=== PATIENT | male | born 1960 | race Caucasian/White ===

== ENCOUNTER 2017-01-20 15:57 | Emergency (ER) | payer BC ==
[2017-01-20] MEDS ORDERED: cefTRIAXone Inj 2 GM in Sodium Chloride 0.9% 100 ML IV ONE (16:15)
[2017-01-20] MEDS ORDERED: NORMAL SALINE 10 ML SYRINGE FLUSH IVP PRN (16:15)
[2017-01-20] MEDS ORDERED: methylPREDNISolone 125 MG/2 ML VIAL IVP ONE (16:15)
[2017-01-20 16:36] LABS: BASOPHILS # (AUTO) 0.06 10*3/UL; BASOPHILS % (AUTO) 0.6 % (0-1); EOSINOPHILS # (AUTO) 0.42 10*3/UL; EOSINOPHILS % (AUTO) 4.2 % (0-8); HEMOGLOBIN 15.6 g/dL (14.0-18.0); LYMPHOCYTES # (AUTO) 3.32 10*3/uL; MEAN CORPUSCULAR HEMOGLOBIN 29.9 PG (27-31); MEAN CORPUSCULAR HGB CONC 34.7 g/dL (33-37); MEAN CORPUSCULAR VOLUME 86.4 FL (80-90); MONOCYTES # (AUTO) 0.84 10*3/UL (0.3-0.8); MONOCYTES % (AUTO) 8.4 % (5-15); NEUTROPHILS # (AUTO) 5.37 10*3/UL; NEUTROPHILS % (AUTO) 53.5 % (50-80); RED BLOOD COUNT 5.21 10^6/uL (4.70-6.10)
[2017-01-20 16:38] LABS: PLATELET MORPHOLOGY COMMENT NORMAL MORPHOLOGY (NORM); RBC MORPHOLOGY COMMENT NORMAL MORPHOLOGY (NORM); WBC MORPHOLOGY COMMENT NORMAL MORPHOLOGY (NORM)
[2017-01-20 16:46] VITALS: RESP 18; TEMP 97.8
[2017-01-20 16:54] LABS: BLOOD UREA NITROGEN 19 mg/dL (7-22); BUN/CREATININE RATIO 23.75 (6-20); CALCIUM 9.2 mg/dL (8.7-10.7); EST GLOMERULAR FILTRATION > 60 (>60 ml/min/1.73m(2)); SERUM ALBUMIN 4.3 g/dL (3.5-4.8)
--- NOTE | 2017-01-20 17:22 | PDOC ---
Eye Complaint HPI - General Chief Complaint: Eye Problem / Injury Stated Complaint: WORSENING CONJUNCTIVITIS Date Seen by Provider: 01/20/17 Time Seen by Provider: 16:40 Source: POSITIVE: Patient Exam Limitations: POSITIVE: No limitations Nurse's Notes Reviewed & Considered: Yes - History of Present Illness Initial Comments: The patient is a 57-year-old male who presents to the emergency room with increased eye drainage and swelling. The patient had developed upper respiratory symptoms last week as well as redness and drainage from his eyes, left greater than right. His had had pinkeye last week. He was evaluated in the clinic and started on polymyxin ophthalmic drops as well as Augmentin. He states that initially he seemed to be getting better. Last night he went to work and seemed fine. After waking up today he had increased swelling to both eyes, increased redness and purulent drainage from both eyes. He denies fevers or chills or any other associated complaints. He states that his vision is somewhat blurry now. His eye pain. He describes more of an irritation. Have you received a tetanus shot in the past 10 years?: Unknown - Patient Home Medications Home Medications: Home Medications Blood Sugar Diagnostic [Freestyle Lite Strips] 1 each IN BID #100 strip Terbinafine HCl [Lamisil] 250 mg PO DAILY #90 tab 04/21/16 Lisinopril 1 tab ORAL BID #180 tab 06/23/16 Montelukast Sodium [Singulair] 1 tab ORAL QD #90 tab 06/23/16 Pravastatin Sodium 1 tab ORAL QD #90 tab 06/23/16 Lansoprazole [Prevacid] 1 cap ORAL QD #90 capsule 09/20/16 Metformin HCl [Metformin Hcl Er] 2 tab PO BID #360 tab 12/15/16 Albuterol Sulfate [Proair Hfa] 2 puff INH QID #1 inhaler 01/17/17 Amoxicillin/Potassium Clav [Augmentin 875-125 Tablet] 1 tab PO BID #20 tab 01/17 Polymyxin B Sulf/Trimethoprim [Polytrim Eye Drops] 2 drop OP Q4H #1 bottle 01/17 Moxifloxacin HCl [Vigamox] 1 - 2 drp EACH EYE TID #1 bottle 01/20/17 predniSONE Tab [Deltasone Tab] 20 mg PO DAILY #9 tab 01/20/17 - Patient Allergies Allergies/Adverse Reactions: Allergies Allergy/AdvReac Type Severity Reaction Status Date / Time latex Allergy Intermediate HIVES Verified 01/20/17 15:59 adhesive Allergy Mild RASH Verified 01/20/17 15:59 Past Medical History - heen HEENT History: Hard of Hearing Cardiovascular History: Hypertension, Hyperlipidemia Respiratory History: Asthma, Snoring Gastrointestinal History: GERD Genitourinary History: Denies History Endocrine History: Type 2 Diabetes (oral) Musculoskeletal History: Back Pain, Joint Pain Prosthesis or Implant: Yes (BACK RODS) Neurological History: Denies History Blood Disorders: Denies History Psychiatric History: Denies History History of Sexually Transmitted Diseases: No Cancer History: Denies History In Past Year Been Physically Harmed or Verbally Threatened: No History of MDRO: No History of Other Communicable Diseases: No Tobacco Use: Never Smoker Alcohol Use: Rarely Substance Use Type: None Previous Surgical History: Yes Type / Date of Surgery: BACK SX, LAMI X 2 WITH EDWIGE/ TONSILLECTOMY/ EGD/ COLONOSCOPY Anesthesia Reactions: No Malignant Hyperthermia: No Significant Family History: Lung disease Past Medical History Reviewed: Reviewed - No Changes ROS - Limitations ROS Limitations: No Limitations Constitution: DENIES: Chills, Fever Cardiovascular: REPORTS: Denies Cardiac Symptoms Respiratory: REPORTS: Denies Resp Symptoms Neurological: REPORTS: Denies Neuro Symptoms Eye Complaint Physical Exam - General Appearance General Appearance: POSITIVE: Alert, Cooperative, No Acute Distress - HEENT Eyes: POSITIVE: Other (Examination of both eyes reveals conjunctiva that is erythematous and swollen, he does have some mild periorbital erythema bilaterally, extraocular eye movements are intact, anterior chambers are clear and pupils are round equal and reactive to light bilaterally) Ears: POSITIVE: Ears Normal Inspection, TM Normal Inspection Nose: POSITIVE: Inspection Normal Oropharynx: POSITIVE: External Inspection Nml, Pharynx Inspect. Nml, Airway Intact, Voice Normal - Skin Skin: POSITIVE: Normal Color, No Skin Rash - Respiratory / Cardiovascular Respiratory / CVS: POSITIVE: No Respiratory Distress, Breath Sounds Normal, Regular Rate/Rhythm, Heart Sounds Normal - Abdomen Abdomen: Soft: (All Quadrants), Denies Tenderness: (All Quadrants) Eye Complaint Progress - Results Reviewed by me Lab Results:: Laboratory Results 01/20/17 Range/Units 16:27 WBC 10.03 (4.8-10.8) 10^3/uL RBC 5.21 (4.70-6.10) 10^6/uL Hgb 15.6 (14.0-18.0) g/dL Hct 45.0 (42.0-52.0) % MCV 86.4 (80-90) FL MCH 29.9 (27-31) PG MCHC 34.7 (33-37) g/dL RDW Std Deviation 39.0 (39-50) fL RDW Coeff of Prasanna 12.5 (11.5-14.5) % Plt Count 273 (140-350) 10*3/uL MPV 10.0 (7.4-12.2) FL Immature Gran % (Auto) 0.2 (0-5) % Neut % (Auto) 53.5 (50-80) % Lymph % (Auto) 33.1 (10-50) % [place] % (Auto) 8.4 (5-15) % Eos % (Auto) 4.2 (0-8) % Baso % (Auto) 0.6 (0-1) % Immature Gran # (Auto) 0.02 10*3/UL Neut # (Auto) 5.37 10*3/UL Lymph # (Auto) 3.32 10*3/uL [place] # (Auto) 0.84 H (0.3-0.8) 10*3/UL Eos # (Auto) 0.42 10*3/UL Baso # (Auto) 0.06 10*3/UL WBC Morphology Comment Normal morphology (NORM) Plt Morphology Comment Normal morphology (NORM) RBC Morph Comment Normal morphology (NORM) Sodium 138 (135-145) meq/L Potassium 4.0 (3.8-5.2) meq/L Chloride 100 (98-112) meq/L Carbon Dioxide 26 (23-33) meq/L Anion Gap 12 (5-20) BUN 19 (7-22) mg/dL Creatinine 0.8 (0.70-1.50) mg/dL Estimated GFR > 60 (>60 ml/min/1.73m(2)) BUN/Creatinine Ratio 23.75 H (6-20) Glucose 133 H (78-110) mg/dL Calculated Osmolality 289.0 (267-292) mOsm/kg Calcium 9.2 (8.7-10.7) mg/dL Total Bilirubin 0.7 (0.3-1.2) mg/dL AST 32 (21-57) IU/L ALT 43 (21-72) IU/L Alkaline Phosphatase 77 (38-126) IU/L C-Reactive Protein 1.0 H (0.0-0.9) mg/dL Total Protein 7.3 (6.1-8.0) g/dL Albumin 4.3 (3.5-4.8) g/dL Globulin 3.0 (2.50-4.10) g/dL Albumin/Globulin Ratio 1.40 (1.3-2.0) mg/g - Patient's Progress MDM / ED Course: An IV was established and blood work was obtained. His blood work is all essentially unremarkable except for mildly elevated CRP at 1.0. He did receive Rocephin 2 g IV as well as Solu-Medrol 125 mg IV. At this point it is difficult to say whether this is worsening conjunctivitis or if he is having an allergic reaction to the polymyxin eyedrops. He was advised to discontinue the polymyxin and was prescribed Vigamox eyedrops. In addition he will continue a short course of prednisone which should help with his asthma exacerbation/ bronchitis as well as any allergic reaction to the eyedrops. He will continue warm compresses. He is advised return to the emergency room if any increased swelling, worsening or change in symptoms. He'll follow-up with his primary care provider in 3 days. - Consult Counseled: POSITIVE: Patient, Family, RE: Lab Results, RE: DX, RE: Need for F/U Patient Care Time - Estimated PCT Patient Care Time (In Minutes): 25 Vital Signs - Recent Vital Signs Vital Signs: Vital Signs (Last 8 hours) Temp Pulse Resp BP Pulse Ox 01/20/17 16:38 97.8 F 79 18 128/97 92 01/20/17 16:15 97.8 F 79 18 128/97 92 - VS Reviewed Vital Signs Reviewed: Yes Discharge Clinical Impression: Conjunctivitis Discharge Disposition: Discharged to Home Condition: Fair Prescriptions / Orders: predniSONE Tab [Deltasone Tab] 20 mg PO DAILY #9 tab Moxifloxacin HCl [Vigamox] 1 - 2 drp EACH EYE TID #1 bottle Patient Instructions Given at Discharge: Conjunctivitis (ED) Additional Instructions: Continue warm compresses to both eyes as needed. Discontinue current polymyxin eyedrops. Finish Augmentin as previously prescribed. You've also been prescribed prednisone 40 mg daily for 3 days, 20 mg daily for 3 days which you should start tomorrow. He will likely experience temporarily elevated blood sugars because of the prednisone. You have been prescribed a new antibiotic eyedrop which is Vigamox which yielded use 1 or 2 drops 3 times a day for 5 days. Return to the emergency room if increased pain or swelling, fevers or chills, worsening or change in symptoms. Follow-up with primary care in 3 days. Follow Up With: BRIAN SALMERON FNP [Primary Care Provider] -
== END 2017-01-20 17:30 | disposition home or self-care (01) ==
LOC: ER 15:57
DX: H10.13 Acute atopic conjunctivitis, bilateral (principal); E11.9 Type 2 diabetes mellitus without complications; H57.13 Ocular pain, bilateral
CPT/HCPCS: 80053; 85025; 86140; 96365; 96375; 99282; 99283; J0696; J2930; J7050